=== PATIENT | female | born 2000 | race African-American/Black ===

== ENCOUNTER 2022-05-08 01:13 | Inpatient (IN) | payer OTHER ==
[2022-05-08] VITALS (31 sets, daily range): BP systolic 107–155; BP diastolic 57–95
[~2022-05-08] VITALS: Ht 157.5 cm; Wt 72.0 kg
[2022-05-08] MEDS ORDERED: PRENTAB9 PO (01:28)
[2022-05-08] MEDS ORDERED: ACET500P3 PO (01:28)
[2022-05-08] MEDS ORDERED: HOME MED LIST COMPLETE! XX SCH (01:30)
[2022-05-08] MEDS ORDERED: LACTATED RINGER'S 1000 ML IV STA (05:23)
[2022-05-08] MEDS ORDERED: METHYLERGONOVINE MALEATE 0.2 MG/ML VIAL (J2210) IM PRN (05:25)
[2022-05-08] MEDS ORDERED: OXYTOCIN DRIP 30 UNITS in IV 1 EA IV PRN ×6 (05:25)
[2022-05-08] MEDS ORDERED: LIDOCAINE 1% MDV 20ML VIAL INFIL PRN (05:25)
[2022-05-08] MEDS ORDERED: TRANEXAMIC ACID INJection 1,000 MG in NS 100 ML IV PRN (05:25)
[2022-05-08] MEDS ORDERED: CARBOPROST TROMETHAMINE 250 MCG/ML AMP IM PRN (05:25)
[2022-05-08] MEDS ORDERED: OXYTOCIN INJ 10 UNITS/ML VIAL (J2590) IM PRN (05:25)
[2022-05-08] MEDS ORDERED: PROMETHAZINE 25MG/ML 1ML VIAL IV ONE (05:35)
[2022-05-08] MEDS ORDERED: BUTORPHANOL 2 MG/ML INJ (J0595) IV PRN (05:35)
[2022-05-08 05:38] LABS: BASO % 0.3 % (0.0-1.0); EOS % 0.3 % (0.0-3.0); HEMOGLOBIN 13.3 g/dl (12.0-15.5); LYMPH # 1.3 10^3/uL (1.5-5.0); LYMPH % 11.7 % (24.0-44.0); MEAN CORPUSCULAR HEMOGLOBIN 31.1 pg (27.0-33.0); MEAN CORPUSCULAR HGB CONC 34.1 g/dl (32.0-36.5); MEAN CORPUSCULAR VOLUME 91.1 fl (80.0-96.0); MONO # 0.5 10^3/uL (0.0-0.8); MONO % 4.7 % (2.0-8.0); NEUTROPHILS % 82.2 % (36.0-66.0); PLATELET COUNT, AUTOMATED 121 10^3/uL (150-450); RED BLOOD COUNT 4.28 10^6/uL (4.00-5.40)
[2022-05-08] MEDS: LR 1,000 ML IV SCH ×3 (05:57→17:32)
[2022-05-08] MEDS ORDERED: NALOXONE INJ 0.4MG/1ML VIAL (J2310 PER 1MG) IV PRN (10:35)
[2022-05-08] MEDS ORDERED: LR 500 ML IV PRN (10:35)
[2022-05-08] MEDS ORDERED: ePHEDrine SULFATE 25 MG/5 ML(5MG/ML) SYRINGE IVP PRN (10:35)
[2022-05-08] MEDS ORDERED: FENTANYL/ROPIVACAINE/NACL BAG 100 ML EPIDURAL SCH (10:35)
[2022-05-08] MEDS ORDERED: EPIDURAL/PCA KEYS XX PRN (10:35)
[2022-05-08] MEDS ORDERED: diphenhydrAMINE 50MG/ML VIAL IV PRN (10:35)
[2022-05-08] MEDS ORDERED: ONDANSETRON 4MG 2ML VIAL IV PRN (10:35)
[2022-05-08] MEDS ORDERED: ACETAMINOPHEN 500 MG TAB PO ONE (18:35)
[2022-05-08] MEDS ORDERED: IBUPROFEN 600MG TAB PO PRN (21:20)
[2022-05-08] MEDS ORDERED: DIBUCAINE 1% OINTMENT 30GM TOP PRN (21:20)
[2022-05-08] MEDS ORDERED: ANUSOL HC CREAM 30GM TOP PRN (21:20)
[2022-05-08] MEDS ORDERED: DOCUSATE SODIUM 100MG CAPSULE PO PRN (21:20)
[2022-05-08] MEDS ORDERED: ACETAMINOPHEN 500 MG TAB PO PRN (21:20)
[2022-05-08] MEDS ORDERED: OXYTOCIN DRIP 30 UNITS in IV 1 EA IV SCH (21:20)
[2022-05-08] MEDS ORDERED: ACETAMINOPHEN TAB 650MG DOSE (2X325MG) PO PRN (21:20)
[2022-05-08] MEDS ORDERED: METHYLERGONOVINE MALEATE 0.2 MG TAB PO PRN (21:20)
[2022-05-08] MEDS ORDERED: RHOGAM 300 MCG (1500 IU) INJ (J2790) IM SCH (21:20)
[2022-05-09 06:00] VITALS: BP 104/55
[2022-05-09 07:05] LABS: HEMATOCRIT 35.3 % (36.0-47.0); HEMOGLOBIN 11.9 g/dl (12.0-15.5); MEAN CORPUSCULAR HEMOGLOBIN 30.8 pg (27.0-33.0); MEAN CORPUSCULAR HGB CONC 33.7 g/dl (32.0-36.5); MEAN CORPUSCULAR VOLUME 91.5 fl (80.0-96.0); PLATELET COUNT, AUTOMATED 117 10^3/uL (150-450); RED BLOOD COUNT 3.86 10^6/uL (4.00-5.40); WHITE BLOOD COUNT 13.1 10^3/uL (4.0-10.0)
[2022-05-09] MEDS ORDERED: PRENATAL VITAMINS CHEWABLE TABLET PO SCH (09:00)
[2022-05-09] MEDS: IBUPROFEN 800 MG TAB PO PRN ×2 (09:19→22:14)
[2022-05-09 17:54] VITALS: BP 104/58
[2022-05-10 06:10] VITALS: BP 98/47
[2022-05-10 07:40] VITALS: BP 98/47
[2022-05-10] MEDS ORDERED: MEASLES,MUMPS,RUBELLA VACCINE INJ (MMR-II) (90707) SC.IMMUN ONE (09:00)
== END 2022-05-10 13:00 | disposition home or self-care (01) | DRG 807 ==
LOC: M LDO 01:13 → M LDI 05:20 → M OBS 22:26
PROVIDERS: ADMIT Obstetrics & Gynecology; ATTEND Obstetrics & Gynecology
PROC: 10E0XZZ Delivery of Products of Conception, External Approach (ICD-10-PCS; principal; 2022-05-08)
PROC: 10907ZC Drainage of Amniotic Fluid, Therapeutic from Products of Conception, Via Natural or Artificial Opening (ICD-10-PCS; 2022-05-08)
PROC: 0HQ9XZZ Repair Perineum Skin, External Approach (ICD-10-PCS; 2022-05-08)
DX: O48.0 Post-term pregnancy (principal); Z37.0 Single live birth; Z3A.40 40 weeks gestation of pregnancy; O70.0 First degree perineal laceration during delivery; Z88.0 Allergy status to penicillin

== ENCOUNTER 2022-05-20 06:52 | Emergency (ER) | payer OTHER ==
[~2022-05-20] VITALS: Ht 157.5 cm; Wt 66.0 kg
[~2022-05-20 06:52] MED LIST: ACET500P3 PO; PRENTAB9 PO
[2022-05-20 06:53] VITALS: BP 115/73
== END 2022-05-20 12:32 | disposition left against medical advice (07) ==
LOC: M ED 06:52
DX: Z53.21 Procedure and treatment not carried out due to patient leaving prior to being seen by health care provider (principal)

== ENCOUNTER 2022-08-06 19:46 | Emergency (ER) | payer OTHER ==
[~2022-08-06] VITALS: Ht 157.5 cm; Wt 64.7 kg
[2022-08-06 19:47] VITALS: BP 113/72
[2022-08-06] MEDS ORDERED: IBUP200C27 PO (19:54)
[2022-08-06 21:30] LABS: BASO % 0.7 % (0.0-1.0); EOS # 0.1 10^3/uL (0.0-0.5); EOS % 1.6 % (0.0-3.0); HEMATOCRIT 41.2 % (36.0-47.0); HEMOGLOBIN 13.7 g/dl (12.0-15.5); LYMPH % 35.7 % (24.0-44.0); MEAN CORPUSCULAR HEMOGLOBIN 29.8 pg (27.0-33.0); MEAN CORPUSCULAR HGB CONC 33.3 g/dl (32.0-36.5); MEAN CORPUSCULAR VOLUME 89.8 fl (80.0-96.0); MONO # 0.3 10^3/uL (0.0-0.8); MONO % 5.9 % (2.0-8.0); NEUTROPHILS # 3.1 10^3/uL (1.5-8.5); NEUTROPHILS % 55.9 % (36.0-66.0); PLATELET COUNT, AUTOMATED 207 10^3/uL (150-450); RED BLOOD COUNT 4.59 10^6/uL (4.00-5.40); WHITE BLOOD COUNT 5.6 10^3/uL (4.0-10.0)
[2022-08-06 21:54] LABS: ALBUMIN 3.8 G/DL (3.2-5.2); BILIRUBIN,DIRECT 0.3 MG/DL (<0.4); BILIRUBIN,TOTAL 1.1 MG/DL (0.3-1.2); TOTAL PROTEIN 6.9 G/DL (5.7-8.2)
[2022-08-06] MEDS ORDERED: ISOVUE-370 76% 100ML VIAL As Ordered ONE (22:02)
[2022-08-07] MEDS ORDERED: CIPROFLOXACIN 500MG TABLET PO ONE (00:10)
[2022-08-07] MEDS ORDERED: CIPR-249 PO (00:19)
[2022-08-07 00:56] LABS: GC DNA AMPLIFICATION NEGATIVE (NEGATIVE)
== END 2022-08-07 00:53 | disposition home or self-care (01) ==
LOC: M ED 19:46
DX: N39.0 Urinary tract infection, site not specified (principal); M54.9 Dorsalgia, unspecified; Z97.5 Presence of (intrauterine) contraceptive device; Z88.0 Allergy status to penicillin